=== PATIENT | female | born 1975 | race Caucasian/White ===

== ENCOUNTER 2017-03-22 15:51 | Outpatient (CLI) | payer MEDICAID, OTHER ==
[~2017-03-22] VITALS: Ht 144.8 cm; Wt 58.2 kg
[~2017-03-22 15:51] MED LIST: PREN1TAB17 PO
[2017-03-22 15:54] VITALS: Ht 144.8 cm; Wt 58.2 kg
--- NOTE | 2017-03-22 16:33 | RADRPT ---
PROCEDURE: US OB biophysical profile. CLINICAL INDICATION: decreased movements, spotting TECHNIQUE: Multiple sonographic images of the pelvis were obtained. The images were reviewed on a PACS workstation. COMPARISON: No prior studies are available for comparison. FINDINGS: There is a single viable intrauterine gestation. Cardiac activity is present with 152 beats per min [place]. There is a vertex presentation. The placenta is anterior. There is no evidence of placental abruption. There is a slightly decreased amount of amniotic fluid with an KARELY = 7.3 cm. Biophysical profile: movement 2/2 tone 2/2. breathing 2/2 KARELY 2/2 Total 12/16 RPTAT: AA . IMPRESSION: Normal biophysical profile. Slightly decreased KARELY. . .Hawk Moulton MD, Date Time Electronically viewed and signed by .Hawk Moulton MD, MD on 03/22/2017 16:33 .S/
[2017-03-22] MEDS ORDERED: LACTATED RINGER'S 1,000 ML IV SCH (17:10)
[2017-03-22] MEDS ORDERED: NIFEdipine 10 MG CAP ONE (17:12)
[2017-03-22] MEDS ORDERED: NIFEdipine 10 MG CAP PO ONE ×2 (17:15→19:30)
--- NOTE | 2017-03-22 20:21 | TRIAGE ---
OB Triage Datetime Report Generated by CPN: 03/22/2017 20:21 Datetime: 03/22/2017 20:20 Stage of : OB Triage Datetime: 03/22/2017 20:09 Vaginal Exam Dilatation (cms): 2.0 Effacement (%): 70 Station: -2 Exam By: dr. reiche Datetime: 03/22/2017 19:37 Pain Assessment Pain Scale: 0 Pain Presence: None/Denies Pain Type: N/A Pain Relief Measures: Comfort Measures Datetime: 03/22/2017 19:30 Labor Evaluation Frequency: X3 Heart Rate FHR Baseline Rate: 145 Monitor Mode: External US FHR Baseline Changes: No Baseline Change Variability: Moderate 6-25 bpm Accelerations: 15X15 Decelerations: None Category: Category I Datetime: 03/22/2017 19:18 Monitor Mode: Palpation Resting Tone [place]: Relaxed Contraction Comments: pt. denies feeling uc's or having any pain. pt. reiterates that she only cam e in for vaginal spotting, no lof, no uc's, no pain or vag pressure Datetime: 03/22/2017 19:16 Temperature Route: Oral Datetime: 03/22/2017 19:12 Stage of : OB Triage Assessment Type: Triage Maternal Assessment Level of Consciousness: Fully Conscious Headache: Denies Blurred Vision: No Respiratory Effort: Unlabored; Regular Rhythm; Equal Expansion Nausea/Vomiting: Denies RUQ Epigastric Pain: Denies Facial Edema: None Fall Risk Assessment History of Falling: (0) No Secondary Diagnosis: (0) No Ambulatory Aid: (0) Bedrest/Nurse Assist Gait: (0) Normal/Bedrest/Immobile Mental Status: (0) Oriented to Own Ability Datetime: 03/22/2017 19:09 Assessment Type: Triage Datetime: 03/22/2017 18:58 Stage of : OB Triage Maternal Assessment Level of Consciousness: Fully Conscious DTR's/Clonus: DTRs 1+ Headache: Denies Breath Sounds, Left: Clear and Equal Breath Sounds, Right: Clear and Equal Nausea/Vomiting: Denies RUQ Epigastric Pain: Denies Labor Evaluation Frequency: x3 Monitor Mode: External Duration (sec)2399: 50-80 Quality: Mild Pattern: Normal: <= 5 Contractions in 10 Minutes Resting Tone [place]: Relaxed Heart Rate FHR Baseline Rate: 140 Monitor Mode: External US FHR Baseline Changes: No Baseline Change Variability: Moderate 6-25 bpm Accelerations: 15X15 Decelerations: None Category: Category I Pain Assessment Pain Scale: 0 Pain Presence: None/Denies Pain Type: N/A Pain Goal: 0 Membrane Status: Intact Datetime: 03/22/2017 17:38 Stage of : OB Triage Maternal Assessment Level of Consciousness: Fully Conscious DTR's/Clonus: DTRs 1+ Headache: Denies Breath Sounds, Left: Clear and Equal Breath Sounds, Right: Clear and Equal Nausea/Vomiting: Denies RUQ Epigastric Pain: Denies Labor Evaluation Frequency: 2-10 Monitor Mode: External Duration (sec)2399: 50-70 Quality: Mild Pattern: Normal: <= 5 Contractions in 10 Minutes Resting Tone [place]: Relaxed Heart Rate FHR Baseline Rate: 140 Monitor Mode: External US FHR Baseline Changes: No Baseline Change Variability: Moderate 6-25 bpm Accelerations: 15X15 Decelerations: None Category: Category I Pain Assessment Pain Scale: 0 Pain Presence: None/Denies Pain Type: N/A Pain Goal: 0 Membrane Status: Intact Datetime: 03/22/2017 16:45 Vaginal Exam Dilatation (cms): 2.0 Effacement (%): 80 Station: -2 Exam By: GLORIA LANDERS Vaginal Bleeding: None Cervix, Consistency: Soft Cervix, Position: Midposition Presentation 'A': Cephalic Datetime: 03/22/2017 16:38 Maternal Assessment Level of Consciousness: Fully Conscious DTR's/Clonus: DTRs 1+ Headache: Denies Blurred Vision: No Respiratory Effort: Unlabored Breath Sounds, Left: Clear and Equal Breath Sounds, Right: Clear and Equal Nausea/Vomiting: Denies RUQ Epigastric Pain: Denies Facial Edema: None Labor Evaluation Frequency: 4-6 Monitor Mode: External Duration (sec)2399: 50-70 Quality: Mild Pattern: Normal: <= 5 Contractions in 10 Minutes Resting Tone [place]: Relaxed Heart Rate FHR Baseline Rate: 140 Monitor Mode: External US FHR Baseline Changes: No Baseline Change Variability: Moderate 6-25 bpm Accelerations: 15X15 Decelerations: None Category: Category I Pain Assessment Pain Scale: 0 Pain Presence: None/Denies Pain Type: N/A Pain Goal: 0 Membrane Status: Intact Datetime: 03/22/2017 16:18 Stage of : OB Triage Maternal Assessment Level of Consciousness: Fully Conscious DTR's/Clonus: DTRs 1+ Headache: Denies Breath Sounds, Left: Clear and Equal Breath Sounds, Right: Clear and Equal Nausea/Vomiting: Denies RUQ Epigastric Pain: Denies Labor Evaluation Frequency: 3 Monitor Mode: External Duration (sec)2399: 50-70 Quality: Mild Pattern: Normal: <= 5 Contractions in 10 Minutes Resting Tone [place]: Relaxed Heart Rate FHR Baseline Rate: 140 Monitor Mode: External US FHR Baseline Changes: No Baseline Change Variability: Moderate 6-25 bpm Accelerations: 15X15 Decelerations: None Category: Category I Pain Assessment Pain Scale: 0 Pain Presence: None/Denies Pain Type: N/A Pain Goal: 0 Membrane Status: Intact Datetime: 03/22/2017 15:59 Assessment Type: Triage Maternal Assessment Level of Consciousness: Fully Conscious DTR's/Clonus: DTRs 2+; No Clonus Headache: Denies Blurred Vision: No Respiratory Effort: Unlabored; Regular Rhythm; Equal Expansion Breath Sounds, Left: Clear and Equal Breath Sounds, Right: Clear and Equal Nausea/Vomiting: Denies RUQ Epigastric Pain: Denies Lower Extremities Edema: None Degree: None Upper Extremities Edema: None Degree: None Facial Edema: None Fall Risk Assessment History of Falling: (0) No Secondary Diagnosis: (0) No Ambulatory Aid: (0) Bedrest/Nurse Assist IV Therapy: (0) No Gait: (0) Normal/Bedrest/Immobile Mental Status: (0) Oriented to Own Ability Fall Score: 0 Fall Risk Score Definition: No Risk: No action required Datetime: 03/22/2017 15:58 EGA: 35.2 Datetime: 03/22/2017 15:49 Time of Arrival: 03/22/2017 15:49 Arrived By: Ambulatory Arrived From: Home Chief Complaint: PT CAME IN C/O SPOTTING THIS MORNING AND NOW THE SPOTTING IS DARB BLOOD. DENIES A [place] ABDOMINAL [place] STATES + FTAL MOVEMNET Movement: Present Contractions: Denies/Absent Rupture of Membranes: Denies Vaginal Bleeding: None Vaginal Discharge: Denies Recent Sexual Intercouse: Denies Abdominal Trauma: Not Applicable Patient Complaints: Other Additional Patient Complaints: NONE Time Provider Notified: 03/22/2017 15:58 Provider Notified: MATILDA Initial Plan: NST, BPP AND PLACENTA LOCATION
--- NOTE | 2017-03-22 20:30 | PN ---
Triage Information Date/Time March 22, 2017 Reason for visit: Vag spotting / bleeding Weeks of Gestation 35w 2d /Para 4/3 Diabetes: gestational Diabetes management: diet controlled Hypertention: none Additional information Spotting today only. No recent intercourse. Denies any contractions. POBHx: Pt states her 3 previous vaginal deliveries were at 38 weeks although the records state 40 weeks. Her youngest is age 6, oldest age 15. PMHx: GDM. PSHx: none. NKDA. Objective BP 119/62 T=98.4 Heart Rate: 140's Heart Rate Comments Accels to 170 bpm. No decels. Contractions: 6-10 Minutes Apart Exam 70%/2/-3 Results/Medications Medications Current Medications Lactated Ringer's (Lr) 1,000 ml @ 250 mls/hr Q4H IV Last administered on 03/22t 17:15; Admin Dose 250 MLS/HR; Start 03/22/17 at 17:10 Imaging Results BPP 8/8. KARELY 7.3. VTX. Anterior placenta. Disposition: Discharge Assessment/Plan A: IUP at 35w 2d. False labor. P: IVF's and Nifedipine 10 x 2 and the infrequent contractions went away. Pt to go home and pelvic rest. Will not be on bedrest but is to take it easy. To return to OB Triage 03/24 for follow-up BPP with KARELY and to assess for contractions and to assess her cervix. DEWEY LIU MD Mar 22, 2017 20:28
== END 2017-03-22 21:16 | disposition home or self-care (01) ==
LOC: OBT 15:51 → L-D 15:52 → OBT 21:16
PROVIDERS: ATTEND Obstetrics & Gynecology
DX: O26.853 Spotting complicating pregnancy, third trimester (principal); Z3A.35 35 weeks gestation of pregnancy
CPT/HCPCS: 36415; 76818; 96360; 96361; J7120; Z7500; Z7610; G0463

== ENCOUNTER 2017-03-24 09:14 | Outpatient (CLI) | payer OTHER ==
[~2017-03-24] VITALS: Ht 152.4 cm; Wt 58.4 kg
[2017-03-24 10:03] VITALS: BP 103/56; PULSE 74; Ht 152.4 cm; Wt 58.4 kg
--- NOTE | 2017-03-24 10:32 | RADRPT ---
PROCEDURE: Obstetrical ultrasound CLINICAL INDICATION: spotting TECHNIQUE: Multiple sonographic images of the pelvis were obtained. The images were reviewed on a PACS workstation. COMPARISON: None FINDINGS: The cervix is not well visualized. There is a single viable intrauterine gestation. Cardiac activity is present with 141 beats per minute. There is a vertex presentation. The placenta is bilobed and fundal in location. There is no evidence for an abruption or placenta pr evia. There is a subjectively normal amount of amniotic fluid. Measurements were made in order to determine age. The results are as follows (cm): BPD =8.88 HC =31.71 AC =34.42 FL =6.74 Estimated gestational age by ultrasound of approximately 36 weeks, 1 day. The estimated date of delivery by ultrasound is 04/20/2017. Estimated gestational age by LMP of approximately 35 weeks, 4 days. The estimated date of delivery by LMP is 04/24/2017. EFW = 3060 grams (83rd percentile) A three-vessel cord is visualized. IMPRESSION: Single viable intrauterine gestation of approximately 36 weeks, 1 day . The estimated date of delivery is 04/20/2017 . Dating by ultrasound is within 4 days of dating by LMP. Cephalic presentation. The placenta is bilobed and fundal in location without evidence of an abruption or placenta previa. Estimated weight is in the 83rd percentile. RPTAT: EE Physician Maxime Date Time Electronically viewed and signed by Physician Maxime on 03/24/2017 10:32 RA/
--- NOTE | 2017-03-24 10:36 | RADRPT ---
PROCEDURE: US OB biophysical profile. CLINICAL INDICATION: Vaginal spotting TECHNIQUE: Multiple sonographic images of the pelvis were obtained. The images were reviewed on a PACS workstation. COMPARISON: March 24, 2017 FINDINGS: There is a single live intrauterine , in cephalic presentation. A normal heart rate i s identified measuring 154 beats per minute. The amniotic fluid index is within normal limits measur ing 11.9 cm. The placenta is bilobed and located anterior and posteriorly grade II. No evidence of p lacental abruption. Biophysical profile: movement 2/2 tone 2/2. breathing 2/2 KARELY 2/2 Total 12/16 IMPRESSION: 1. Biophysical profile score of 8/8. 2. Single live intrauterine in cephalic presentation with normal heart rate of 154 b pm. 3. Normal amniotic fluid index of 11.9 cm. RPTAT: AAPP Physician Susan Date Time Electronically viewed and signed by Physician Susan on 03/24/2017 10:36 JL/
--- NOTE | 2017-03-24 14:18 | RADRPT ---
PROCEDURE: US OB. CLINICAL INDICATION: presentation TECHNIQUE: Transabdominal views of the pelvis are available for review. COMPARISON: None. FINDINGS: There is a single intrauterine gestation in a vertex position. The heart rate is present at 148 bpm. The placenta is bilobed and fundal in location. There is no evidence of placenta previa or a placen frances abruption. RPTAT: AA IMPRESSION: Cephalic presentation. Mauri Chau Physician Date Time Electronically viewed and signed by Mauri Chau Physician on 03/24/2017 14:17 RA/
--- NOTE | 2017-03-24 15:16 | TRIAGE ---
OB Triage Datetime Report Generated by CPN: 03/24/2017 15:16 Datetime: 03/24/2017 14:05 Frequency: 8-10 Monitor Mode: External Duration (sec)2399: 50-70 Quality: Mild Pattern: Normal: <= 5 Contractions in 10 Minutes Resting Tone [place]: Relaxed FHR Baseline Rate: 135 Monitor Mode: External US Variability: Moderate 6-25 bpm Accelerations: 10X10 Decelerations: None Category: Category I Pain Scale: 0 Pain Presence: None/Denies Pain Type: N/A Pain Goal: 3 Pain Relief Measures: Comfort Measures Datetime: 03/24/2017 13:02 Frequency: 8-10 Monitor Mode: External Duration (sec)2399: 50-70 Quality: Mild Pattern: Normal: <= 5 Contractions in 10 Minutes Resting Tone [place]: Relaxed FHR Baseline Rate: 135 Monitor Mode: External US Variability: Moderate 6-25 bpm Accelerations: 10X10 Decelerations: None Category: Category I Pain Scale: 0 Pain Presence: None/Denies Pain Type: N/A Pain Goal: 3 Pain Relief Measures: Comfort Measures Datetime: 03/24/2017 12:50 Stage of : OB Triage Dilatation (cms): 2.0 Station: -2 Exam By: DR FRIAS Vaginal Bleeding: None Cervix, Consistency: Soft Cervix, Position: Midposition Presentation 'A': Cephalic Datetime: 03/24/2017 12:02 Frequency: 8-10 Monitor Mode: External Duration (sec)2399: 50-80 Quality: Mild Resting Tone [place]: Relaxed FHR Baseline Rate: 135 Monitor Mode: External US Variability: Moderate 6-25 bpm Accelerations: 10X10 Decelerations: None Category: Category I Pain Scale: 0 Pain Presence: None/Denies Pain Type: N/A Pain Goal: 3 Pain Relief Measures: Comfort Measures Datetime: 03/24/2017 11:03 Frequency: 6-7 Monitor Mode: External Duration (sec)2399: 40-70 Quality: Mild Pattern: Normal: <= 5 Contractions in 10 Minutes Resting Tone [place]: Relaxed Contraction Comments: DENIES FEELING FHR Baseline Rate: 135 Monitor Mode: External US Variability: Moderate 6-25 bpm Accelerations: 10X10 Decelerations: None Category: Category I Pain Scale: 0 Pain Presence: None/Denies Pain Type: N/A Pain Goal: 3 Pain Relief Measures: Comfort Measures Datetime: 03/24/2017 09:59 Stage of : OB Triage Assessment Type: Triage Level of Consciousness: Fully Conscious DTR's/Clonus: DTRs 2+; No Clonus Headache: Denies Blurred Vision: No Respiratory Effort: Unlabored; Regular Rhythm; Equal Expansion Breath Sounds, Left: Clear and Equal Breath Sounds, Right: Clear and Equal Nausea/Vomiting: Denies RUQ Epigastric Pain: Denies Facial Edema: None Temperature Route: Axillary History of Falling: (0) No Secondary Diagnosis: (0) No Ambulatory Aid: (0) Bedrest/Nurse Assist IV Therapy: (0) No Gait: (0) Normal/Bedrest/Immobile Mental Status: (0) Oriented to Own Ability Fall Score: 0 Fall Risk Score Definition: No Risk: No action required Frequency: 18-20 Monitor Mode: External Duration (sec)2399: 50-70 Quality: Mild Pattern: Normal: <= 5 Contractions in 10 Minutes Resting Tone [place]: Relaxed FHR Baseline Rate: 135 Monitor Mode: External US Variability: Moderate 6-25 bpm Accelerations: 10X10 Decelerations: None Category: Category I Pain Scale: 0 Pain Presence: None/Denies Pain Type: N/A Pain Goal: 3 Pain Relief Measures: Comfort Measures Datetime: 03/24/2017 09:57 Time of Arrival: 03/24/2017 09:10 EGA: 35.4 Arrived By: Ambulatory Arrived From: Home Chief Complaint: FOLLOW UP SPOTTING, PTL, DENIES LEAKING, SCANT SPOTTING THIS AM. DENIES UC'S Movement: Present Contractions: Denies/Absent Rupture of Membranes: Denies Vaginal Bleeding: Scant Vaginal Discharge: Present Recent Sexual Intercouse: Denies Abdominal Trauma: Not Applicable Patient Complaints: None Time Provider Notified: 03/24/2017 09:27 Provider Notified: ALTAGRACIA Initial Plan: MONITOR, BPP, EFW, Datetime: 03/24/2017 09:27 Dilatation (cms): 2.0 Effacement (%): 70 Station: -2 Exam By: DR FRIAS Vaginal Bleeding: Scant Cervix, Consistency: Soft Cervix, Position: Midposition Presentation 'A': Cephalic Datetime: 03/24/2017 09:25 Stage of : OB Triage Datetime: 03/22/2017 20:15 Frequency: X4 Monitor Mode: External Pattern: Normal: <= 5 Contractions in 10 Minutes FHR Baseline Rate: 145 Monitor Mode: External US FHR Baseline Changes: No Baseline Change Variability: Moderate 6-25 bpm Accelerations: 15X15
--- NOTE | 2017-03-24 17:21 | PN ---
Triage Information Date/Time Reason for visit: Uterine contractions Weeks of Gestation 35 weeks 4/7 DAY /Para Diabetes: none Hypertention: none Objective Vital Signs Date Time Temp Pulse Resp B/P Pulse Ox O2 Delivery O2 Flow Rate FiO2 03/24/17 10:03 98.1 74 103/56 Heart Rate: 130's Contractions: >10 Minutes Apart Exam Cervix long closed vertex -2 station Results/Medications Imaging Results Biophysical profile 12/16 KARELY 11.9 estimated weight 3060 g Disposition: Discharge DAVID FRIAS MD Mar 24, 2017 17:21
== END 2017-03-24 14:30 | disposition home or self-care (01) ==
LOC: L-D 09:14 → OBT 09:14
PROVIDERS: ATTEND Obstetrics & Gynecology
DX: O62.9 Abnormality of forces of labor, unspecified (principal); Z3A.35 35 weeks gestation of pregnancy
CPT/HCPCS: 76815; 76818; Z7500; G0463

== ENCOUNTER 2017-04-16 16:48 | Outpatient (CLI) | payer OTHER ==
[~2017-04-16] VITALS: Ht 152.4 cm; Wt 59.0 kg
[2017-04-16 17:12] VITALS: Ht 152.4 cm; Wt 59.0 kg
[2017-04-16 17:13] VITALS: BP 117/62; PULSE 73; RESP 18
--- NOTE | 2017-04-16 17:20 | RADRPT ---
PROCEDURE: US OB. CLINICAL INDICATION: Gestational diabetes TECHNIQUE: Multiple sonographic images of the pelvis were obtained. The images were reviewed on a PACS workstation. COMPARISON: 03/24/2017 FINDINGS: There is a single live intrauterine . cardiac activity is identified at a rate of 14 6 beats per minute. presentation is cephalic. Placenta is anterior fundal grade II. The placenta is of bilobed [place]. Biophysical profile score is as follows: Breathing 2 Movements 2 Tone 2 Fluid volume 2 Amniotic fluid index = 13.43 cm Total biophysical profile score = 8/8 IMPRESSION: Biophysical profile score = 8/8 RPTAT: HH .Ced Philippe MD, Date Time Electronically viewed and signed by .Ced Philippe MD, MD on 04/16/2017 17:20 .W/
--- NOTE | 2017-04-16 18:21 | CONS ---
Date/Time of Note Date/Time of Note DATE: 04/16/17 TIME: 18:17 Consultation Date/Type/Reason Admit Date/Time April 16, 2017 OB triage consult This patient is a 41 years old 4 para 3 with estimated date of confinement of April 24, 2017 which makes her 38 weeks and 6 days today she developed gestational diabetes; diet controlled,. she came in here for monitoring and evaluation of the condition of her .. On examination; she is a well-developed well-nourished lady, at term her general vital signs are normal; with blood pressure of 117/62, pulse rate of 73 respiration 18,, temperature 98.1, heart tracing is normal and reactive with fairly good variability, occasional acceleration, no decelerations. Reason for Consultation Laboratory Tests Test 04/16/17 17:00 Bedside Glucose 103mg/dL Constitutional: No chills, No diaphoresis, No disoriented, No febrile, No improved, No no complaints, No other, No poor po, No requiring IVF, No requiring O2 Eyes: No discharge, No no complaints, No other, No pain, No redness, No visual change ENT: No bleeding, No congestion, No discharge, No dysphagia, No no complaints, No other, No pain, No sore throat Respiratory: No cough, No no complaints, No other, No pain, No pleuritic pain, No shortness of breath, No sputum, No wheezing Cardiovascular: No chest pain, No edema, No lightheadedness, No no complaints, No orthopenea, No other, No palpitations, No paroxysmal nocturnal dyspnea Gastrointestinal: No blood, No constipation, No decreased appetite, No diarrhea , No flatus, No nausea, No no complaints, No other, No pain, No passing stool, No vomiting Genitourinary: other (Due to lack of any contraction pelvic examination was not performed), No bleeding, No discharge, No dysuria, No flank pain, No hematuria, No no complaints Skin: No bruising, No erythema, No laceration, No no complaints, No other, No pruritis, No rash, No skin lesions Neurologic: other (Knee-jerk reflexes normal), No confusion, No dizziness, No focal-weakness, No headache, No no complaints , No seizure, No syncope Endocrine: dry skin, no complaints, other, polydypsia, polyuria, temp intolerance Additional Comments On ultrasound study ; the report was a single intrauterine ,with heart rate of 146 bpm, in vertex presentation placenta was anterior her biophysical profile was 88 Disposition. With these normal finding patient was discharged home to be followed in the clinic Social History Smoking Status: Never smoker Exam/Review of Systems Vital Signs Vitals Vital Signs Date Time Temp Pulse Resp B/P Pulse Ox O2 Delivery O2 Flow Rate FiO2 04/16/17 17:13 98.1 73 18 117/62 Results Results 24 hrs Laboratory Tests Test 04/16/17 17:00 Bedside Glucose 103 BUCKY SWENSON MD Apr 16, 2017 18:21
--- NOTE | 2017-04-16 19:16 | TRIAGE ---
OB Triage Datetime Report Generated by CPN: 04/16/2017 19:16 Datetime: 04/16/2017 18:08 Stage of : OB Triage Datetime: 04/16/2017 17:46 Labor Evaluation Frequency: OCCAS Monitor Mode: External Duration (sec)2399: 50-60 Quality: Mild Resting Tone [place]: Relaxed Heart Rate FHR Baseline Rate: 135 Monitor Mode: External US Variability: Moderate 6-25 bpm Accelerations: 10X10 Decelerations: None Category: Category I Pain Assessment Pain Scale: 0 Pain Presence: None/Denies Pain Type: N/A Pain Goal: 3 Pain Relief Measures: Comfort Measures Datetime: 04/16/2017 16:56 Stage of : OB Triage Assessment Type: Triage Maternal Assessment Level of Consciousness: Fully Conscious DTR's/Clonus: DTRs 2+; No Clonus Headache: Denies Blurred Vision: No Respiratory Effort: Unlabored; Regular Rhythm; Equal Expansion Breath Sounds, Left: Clear and Equal Breath Sounds, Right: Clear and Equal Nausea/Vomiting: Denies RUQ Epigastric Pain: Denies Facial Edema: None Temperature Route: Axillary Fall Risk Assessment History of Falling: (0) No Secondary Diagnosis: (0) No Ambulatory Aid: (0) Bedrest/Nurse Assist IV Therapy: (0) No Gait: (0) Normal/Bedrest/Immobile Mental Status: (0) Oriented to Own Ability Fall Score: 0 Fall Risk Score Definition: No Risk: No action required Labor Evaluation Frequency: X1 Monitor Mode: External Duration (sec)2399: 40 Quality: Mild Pattern: Normal: <= 5 Contractions in 10 Minutes Resting Tone [place]: Relaxed Heart Rate FHR Baseline Rate: 145 Monitor Mode: External US Variability: Moderate 6-25 bpm Accelerations: 10X10 Decelerations: None Category: Category I Pain Assessment Pain Scale: 0 Pain Presence: None/Denies Pain Goal: 3 Pain Relief Measures: Comfort Measures Datetime: 04/16/2017 16:54 Time of Arrival: 04/16/2017 16:30 EGA: 38.6 Arrived By: Ambulatory Arrived From: Office Chief Complaint: REFERRED FROM [facility] FOR GDM NST/BPP, EFW Movement: Present Contractions: Denies/Absent Rupture of Membranes: Denies Vaginal Bleeding: None Vaginal Discharge: Denies Recent Sexual Intercouse: Denies Abdominal Trauma: Not Applicable Patient Complaints: None Time Provider Notified: 04/16/2017 18:08 Provider Notified: FOROOHAR Initial Plan: MONITOR, EFW, BPP/NST Datetime: 03/24/2017 09:59 Fall Score: 0 Fall Risk Score Definition: No Risk: No action required Datetime: 03/24/2017 09:57 EGA: 35.4 Datetime: 03/22/2017 15:59 Fall Score: 0 Fall Risk Score Definition: No Risk: No action required Datetime: 03/22/2017 15:58 EGA: 35.2
[2017-04-17] MEDS ORDERED: CALC600T24 PO (01:39)
== END 2017-04-16 18:30 | disposition home or self-care (01) ==
LOC: OBT 16:48 → L-D 16:49 → OBT 18:30
PROVIDERS: ATTEND Obstetrics & Gynecology
DX: O24.410 Gestational diabetes mellitus in pregnancy, diet controlled (principal); Z3A.38 38 weeks gestation of pregnancy
CPT/HCPCS: 76818; 82962; Z7500; G0463

== ENCOUNTER 2017-04-17 00:50 | Inpatient (IN) | payer OTHER ==
[~2017-04-17] VITALS: Ht 152.4 cm; Wt 59.8 kg
[2017-04-17 01:37] VITALS: BP 109/61; PULSE 70; RESP 18
[2017-04-17] MEDS ORDERED: CALC600T24 PO (01:39)
[2017-04-17] MEDS ORDERED: LACTATED RINGER'S 1,000 ML IV SCH (02:20)
[2017-04-17] MEDS ORDERED: OXYTOCIN 30 UNITS/LR 500 ML IV SCH ×3 (02:30→07:46)
[2017-04-17] MEDS ORDERED: OXYTOCIN 30 UNITS/LR 500 ML IV PRN ×2 (02:30→08:00)
[2017-04-17] MEDS ORDERED: CARBOPROST 250 MCG INJ IM PRN ×2 (02:30→08:00)
[2017-04-17] MEDS ORDERED: IBUPROFEN 600 MG TAB PO PRN (02:30)
[2017-04-17] MEDS ORDERED: LIDOCAINE 1% (MPF) 30 ML INJ INJ PRN (02:30)
[2017-04-17] MEDS ORDERED: BUTORPHANOL 2 MG INJ IV PRN (02:30)
[2017-04-17] MEDS ORDERED: METHYLERGONOVINE 0.2 MG INJ IM PRN ×2 (02:30→08:00)
[2017-04-17] MEDS ORDERED: MISOPROSTOL 200 MCG TAB PR PRN ×2 (02:30→08:00)
--- NOTE | 2017-04-17 02:49 | HP ---
Date/Time of Note Date/Time of Note DATE: 04/17/17 TIME: 02:44 OB - History Hx of Present Free Text/Dictation 41 y.o A0 at 39w with c/o uc q 5min apart srom 04/16/17 2310 VE 5/90%/-2 A1DM GBS neg admitted for expectant management Chief Complaint: uc's and srom Estimated Due Date: Apr 24, 2017 : 4 Para: 3 Spontaneous : 0 Therapeutic : 0 Care: Good Care Ultrasounds: Normal mid trimester US Obstetrical Complications: None, Gestational Diabetes Medical Complications: None Past Family/Social History * Past Medical, Surgical, Family and Obstetric Histories reviewed from chart. Blood Type: O+ Rubella: immune RPR/VDRL: Negative GBS Status: Negative HBsAG: Negative OB Admission Exam Vital Signs Vital Signs Vital Signs Date Time Temp Pulse Resp B/P Pulse Ox O2 Delivery O2 Flow Rate FiO2 04/17/17 01:37 98.2 70 18 109/61 Room Air Physical Exam HEENT: WNL Heart: Rhythm Normal Lungs: Clear, Equal Abdomen: WNL Extremities: Normal Reflexes: Normal Cervical Dilatation: 5cm Effacement: Other (90%) Station: -2 Membranes: Ruptured Amniotic Fluid: Clear Heart Rate: 140's Accelerations: Accelerations Present Decelerations: No Decelerations Varibility: Moderate Contractions on Admission: < 5 Minutes Apart Intensity: Mild OB Assessment/Plan Reason for admission: active labor Other Assessment: IUP 39w Plan: Expectant Management TA [id number] MD Apr 17, 2017 02:49
[2017-04-17] MEDS ORDERED: DEXTROSE 5%-LR 1,000 ML IV SCH (03:00)
[2017-04-17 04:09] LABS: INR 0.83; PROTIME 11.5 Sec (11.9-14.9); PT RATIO 0.9
[2017-04-17 04:10] LABS: BASOPHILS % 0.2 % (0.0-2.0); EOSINOPHILS % 0.5 % (0.0-7.0); HEMATOCRIT 38.8 % (37.0-47.0); HEMOGLOBIN 13.8 g/dl (12.0-16.0); LYMPHOCYTES # 1.7 10^3/ul (0.8-2.9); LYMPHOCYTES % 25.6 % (15.0-51.0); MEAN CORPUSCULAR HEMOGLOBIN 33.9 pg (29.0-33.0); MEAN CORPUSCULAR HGB CONC 35.6 g/dl (32.0-37.0); MEAN CORPUSCULAR VOLUME 95.3 fl (82.0-101.0); MEAN PLATELET VOLUME 12.1 fl (7.4-10.4); MONOCYTE # 0.5 10^3/ul (0.3-0.9); MONOCYTES % 7.8 % (0.0-11.0); NEUTROPHIL # 4.3 10^3/ul (1.6-7.5); NEUTROPHILS % 65.4 % (39.0-77.0); PARTIAL THROMBOPLASTIN TIME 29.2 Sec (25.0-35.0); PLATELET COUNT 187 10^3/UL (140-415); RED BLOOD COUNT 4.07 10^6/ul (4.20-5.40); RED CELL DISTRIBUTION WIDTH 12.9 % (11.5-14.5); WHITE BLOOD COUNT 6.6 10^3/ul (4.8-10.8)
[2017-04-17] MEDS ORDERED: ACCU-CHEK XX SCH (06:00)
[2017-04-17 06:45] VITALS: BP 114/60; PULSE 57; RESP 20
[2017-04-17 07:15] VITALS: BP 116/59; PULSE 62; RESP 20
--- NOTE | 2017-04-17 07:28 | LDN ---
Date/Time of Note Date/Time of Note DATE: 04/17/17 TIME: 07:26 Delivery Summary Weeks of Gestation 38wplus Placenta Delivered: Spontaneously Meconium: none Episiotomy: No Perineal laceration: 1 Laceration repair: 000ch gut Anesthesia type: None Estimated blood loss: 100 Sponge & Needle done & correct: Yes All needle counts correct: Yes Any foreign bodies felt in the: No Problems: Infant Delivery Information Sex Infant Sex: female Apgars 1 Minute: 9 5 Minute: 9 10 Minute: 0 Suctioning Nose & mouth suctioned at barbara: Yes Delee suction performed: No Umbilical Cord Umbilical cord with: 3 Vessels Cord presentations: no nuchal cord Cord Blood was obtained: Yes TA SIDDIQI MD Apr 17, 2017 07:28
[2017-04-17 07:30] VITALS: BP 114/61; PULSE 62; RESP 18
[2017-04-17] MEDS ORDERED: LANOLIN 7 GM TUBE TOP PRN (08:00)
[2017-04-17] MEDS ORDERED: OXYCODONE/ASPIRIN (4.88/325) TAB PO PRN ×2 (08:00)
[2017-04-17] MEDS ORDERED: ZOLPIDEM 5 MG TAB PO PRN (08:00)
[2017-04-17] MEDS: BENZOCAINE 20% 56 ML SPRAY TOP PRN (08:29)
[2017-04-17] MEDS: WITCH HAZEL/GLYCERIN PAD PR PRN (08:29)
[2017-04-17] MEDS: SENNA/DOCUSATE NA (8.6MG/50MG) TAB PO SCH ×2 (09:00→21:31)
[2017-04-17] MEDS: IBUPROFEN 600 MG TAB PO SCH ×3 (11:47→23:47)
[2017-04-17] MEDS: LACTATED RINGER'S 1,000 ML IV* SCH ×3 (12:51→23:46)
[2017-04-17 16:00] VITALS: BP 123/59; PULSE 57; RESP 18
[2017-04-17 19:50] VITALS: BP 116/60; PULSE 67; RESP 19
[2017-04-18 00:15] VITALS: BP 121/68; PULSE 74; RESP 19
[2017-04-18 04:00] VITALS: BP 109/57; PULSE 69; RESP 18
[2017-04-18] MEDS: IBUPROFEN 600 MG TAB PO SCH ×4 (05:45→23:34)
[2017-04-18] MEDS: LACTATED RINGER'S 1,000 ML IV* SCH (07:46)
[2017-04-18 08:40] VITALS: BP 109/59; PULSE 71; RESP 18
[2017-04-18] MEDS: SENNA/DOCUSATE NA (8.6MG/50MG) TAB PO SCH ×2 (10:07→20:24)
[2017-04-18 11:46] LABS: BASOPHILS % 0.3 % (0.0-2.0); EOSINOPHILS # 0.1 10^3/ul (0.0-0.5); EOSINOPHILS % 0.9 % (0.0-7.0); HEMATOCRIT 36.2 % (37.0-47.0); HEMOGLOBIN 12.5 g/dl (12.0-16.0); LYMPHOCYTES # 1.6 10^3/ul (0.8-2.9); LYMPHOCYTES % 22.9 % (15.0-51.0); MEAN CORPUSCULAR HEMOGLOBIN 33.9 pg (29.0-33.0); MEAN CORPUSCULAR HGB CONC 34.5 g/dl (32.0-37.0); MEAN CORPUSCULAR VOLUME 98.1 fl (82.0-101.0); MEAN PLATELET VOLUME 12.4 fl (7.4-10.4); MONOCYTE # 0.5 10^3/ul (0.3-0.9); MONOCYTES % 7.5 % (0.0-11.0); NEUTROPHIL # 4.7 10^3/ul (1.6-7.5); NEUTROPHILS % 68.1 % (39.0-77.0); PLATELET COUNT 187 10^3/UL (140-415); RED BLOOD COUNT 3.69 10^6/ul (4.20-5.40); RED CELL DISTRIBUTION WIDTH 13.3 % (11.5-14.5)
[2017-04-18 15:50] VITALS: BP 100/55; PULSE 61; RESP 18
[2017-04-18 15:51] VITALS: BP 100/55; RESP 16
--- NOTE | 2017-04-18 17:26 | QN ---
Documentation Comment No complaint Afebrile VSS Fundus firm Lochia scant PPD #1 Stable Continue present care. ZACK GUPTA MD Apr 18, 2017 17:26
--- NOTE | 2017-04-18 17:26 | DS ---
Date/Time of Note Date/Time of Note DATE: 04/18/17 TIME: 17:26 Obstetrical Discharge Record Final Diagnosis Final Diagnosis: Term delivered Vaginal Delivery Obstetrical Delivery: Spontaneous Condition on Discharge Physical Assessment Voiding: Yes Bowel Movement: Yes Breast: Soft, non-tender, Filling Fundus: Firm Calf Tenderness: No Patient Condition: Stable ZACK GUPTA MD Apr 18, 2017 17:26
[2017-04-18 19:20] VITALS: BP 107/60; PULSE 65; RESP 20
[2017-04-19 04:10] VITALS: BP 108/69; PULSE 78; RESP 19
[2017-04-19] MEDS: IBUPROFEN 600 MG TAB PO SCH ×2 (05:44→11:23)
[2017-04-19 07:40] VITALS: BP 106/51; PULSE 60; RESP 16
[2017-04-19] MEDS: SENNA/DOCUSATE NA (8.6MG/50MG) TAB PO SCH (08:51)
[2017-04-19] MEDS ORDERED: DIPHTH/TET/ACEL PERTUSS (ADULT) 0.5 ML VIAL IM* ONE (09:00)
[2017-04-19] MEDS: WITCH HAZEL/GLYCERIN PAD PR PRN (11:41)
[2017-04-19] MEDS: BENZOCAINE 20% 56 ML SPRAY TOP PRN (11:41)
== END 2017-04-19 12:38 | disposition home or self-care (01) | DRG 775 ==
LOC: OBT 00:50 → L-D 00:55 → OBT 02:10 → PP1 06:46
PROVIDERS: ADMIT Obstetrics & Gynecology; ATTEND Obstetrics & Gynecology
PROC: 10E0XZZ Delivery of Products of Conception, External Approach (ICD-10-PCS; principal; 2017-04-17)
PROC: 0HQ9XZZ Repair Perineum Skin, External Approach (ICD-10-PCS; 2017-04-17)
PROC: 3E033VJ Introduction of Other Hormone into Peripheral Vein, Percutaneous Approach (ICD-10-PCS; 2017-04-17)
DX: O70.0 First degree perineal laceration during delivery (principal); Z37.0 Single live birth; Z3A.38 38 weeks gestation of pregnancy
CPT/HCPCS: 82947; 82962; 85025; 85610; 85730; 86592; 86900; 86901; 87340; 90715; G0463; J2590; J7120; J7121